=== PATIENT | male | born 1945 | race Caucasian/White ===

== ENCOUNTER → 2017-12-30 | Outpatient (CLI) | payer MEDICARE, OTHER ==
[~2017-12-30] MED LIST: HEPARIN 1,000 UNITS/ML 10ML VIAL (FOR RADIOLOGY& DIALYSIS ONLY) As Ordered; ISOVUE-300 61% 50ML VIAL (Q9967) As Ordered; LIDOCAINE 2% MDV 20 ML VIAL As Ordered; MIDAZOLAM INJ 2 MG/2 ML VIAL (J2250) As Ordered; fentaNYL 100 MCG/2 ML INJECTION (J3010) As Ordered
[2017-12-30 09:55] LABS: HEMATOCRIT 44.4 % (42.0-52.0); HEMOGLOBIN 14.8 g/dl (13.5-17.5); MEAN CORPUSCULAR HEMOGLOBIN 32.2 pg (27.0-33.0); MEAN CORPUSCULAR HGB CONC 33.3 g/dl (32.0-36.5); MEAN CORPUSCULAR VOLUME 96.7 fl (80.0-96.0); PLATELET COUNT, AUTOMATED 177 10^3/uL (150-450); RED BLOOD COUNT 4.59 10^6/uL (4.30-6.10); RED CELL DISTRIBUTION WIDTH 13.2 % (11.5-14.5); WHITE BLOOD COUNT 8.2 10^3/uL (4.0-10.0)
[2017-12-30 10:08] LABS: INR 0.86; PROTHROMBIN TIME 11.8 SECONDS (12.1-14.4)
[2017-12-30 10:18] LABS: ANION GAP 11 MEQ/L (8-16); BLOOD UREA NITROGEN 20 MG/DL (7-18); CALCIUM LEVEL 8.7 MG/DL (8.8-10.2); CARBON DIOXIDE LEVEL 28 MEQ/L (21-32); CHLORIDE LEVEL 104 MEQ/L (98-107); CREATININE FOR GFR 1.82 MG/DL (0.70-1.30); GLUCOSE, FASTING 158 MG/DL (70-100); SODIUM LEVEL 143 MEQ/L (136-145)
== END | disposition home or self-care (01) ==
LOC: M IRPRO 09:22
DX: I70.201 Unspecified atherosclerosis of native arteries of extremities, right leg (principal); I87.2 Venous insufficiency (chronic) (peripheral); I87.301 Chronic venous hypertension (idiopathic) without complications of right lower extremity
CPT/HCPCS: 36247

== ENCOUNTER → 2018-02-23 | Outpatient (CLI) | payer MEDICARE, OTHER | LOC: M RAD 11:38 | DX: N17.9 Acute kidney failure, unspecified (principal); I73.9 Peripheral vascular disease, unspecified | CPT/HCPCS: 78707 ==

== ENCOUNTER 2018-10-28 12:00 | Inpatient (IN) | payer MEDICARE ==
[~2018-10-28] VITALS: Ht 177.8 cm; Wt 139.2 kg
[~2018-10-28 12:00] MED LIST changes: +ACET-683 PO; +ASPI81TA85 PO; +ATEN50TA2 PO; +CVS400CA PO; +CYAN500T8 PO; +FENO145T13 PO; +FURO80TA2 PO; -HEPARIN 1,000 UNITS/ML 10ML VIAL (FOR RADIOLOGY& DIALYSIS ONLY) As Ordered; +INSUHUMDS SC; +INSULANT SC; -ISOVUE-300 61% 50ML VIAL (Q9967) As Ordered; -LIDOCAINE 2% MDV 20 ML VIAL As Ordered; +LISI-538 PO; -MIDAZOLAM INJ 2 MG/2 ML VIAL (J2250) As Ordered; +OMEP20CA4 PO; +SIMV40TA2 PO; +SULF1TAB93 PO; +XARE10TA PO; -fentaNYL 100 MCG/2 ML INJECTION (J3010) As Ordered
[2018-10-29] VITALS (8 sets, daily range): BP systolic 126–180; BP diastolic 54–74
[2018-10-29] MEDS ORDERED: LR 1,000 ML IV ONE (07:00)
[2018-10-29] MEDS ORDERED: ONDANSETRON 4MG/2ML VIAL (J2405) As Ordered ONE (11:35)
[2018-10-29] MEDS ORDERED: LIDOCAINE 2% INJ 100 MG/5 ML SDV (FOR ANES.) As Ordered ONE (11:35)
[2018-10-29] MEDS ORDERED: dexameTHASONE 4 MG/ML 1ML VIAL (J1100) As Ordered ONE (11:35)
[2018-10-29] MEDS ORDERED: MIDAZOLAM INJ 2 MG/2 ML VIAL (J2250) As Ordered ONE (11:35)
[2018-10-29] MEDS ORDERED: PROPOFOL 200 MG/20 ML VIAL As Ordered ONE ×6 (11:35→15:25)
[2018-10-29] MEDS ORDERED: fentaNYL 100 MCG/2 ML INJECTION (J3010) As Ordered ONE ×2 (11:36→13:00)
[2018-10-29] MEDS ORDERED: LIDOCAINE 1% SDV INJ 30 ML VIAL As Ordered ONE (11:41)
[2018-10-29] MEDS ORDERED: BUPIVACAINE HCL 0.5% 30 ML VIAL As Ordered ONE (11:41)
[2018-10-29] MEDS ORDERED: HEPARIN SOD (PORCINE) 5000 UNITS/ML VIAL As Ordered ONE ×3 (11:41→15:12)
[2018-10-29] MEDS ORDERED: THROMBIN SOLN 20,000 UNITS KIT As Ordered ONE (11:41)
[2018-10-29] MEDS ORDERED: CLINDAMYCIN 900 MG/50 ML PREMIX BAG As Ordered ONE (12:06)
[2018-10-29] MEDS ORDERED: KETAMINE HCL 200 MG/20 ML VIAL As Ordered ONE (12:27)
[2018-10-29] MEDS ORDERED: KETOROLAC 60 MG/2 ML VIAL (J1885) As Ordered ONE (12:52)
[2018-10-29] MEDS ORDERED: CLINDAMYCIN 900 MG in APPROPRIATE DILUENT 1 EA IV ONE (13:30)
[2018-10-29] MEDS ORDERED: HYDROmorphone HCL 2 MG/ML 1ML VIAL (J1170) As Ordered ONE (14:54)
[2018-10-29] MEDS ORDERED: hydrALAZINE INJ 20 MG/ML VIAL As Ordered ONE (15:06)
[2018-10-29] MEDS ORDERED: BISACODYL 10 MG SUPP PR PRN (16:15)
[2018-10-29] MEDS ORDERED: MOM 30ML SUSPENSION UDC PO PRN (16:15)
[2018-10-29] MEDS ORDERED: METOCLOPRAMIDE INJ 10MG/2ML VIAL (J2765) IV PRN (16:15)
[2018-10-29] MEDS ORDERED: ONDANSETRON 4MG/2ML VIAL (J2405) IV PRN (16:15)
[2018-10-29] MEDS ORDERED: PERCOCET 5MG/325MG TAB PO PRN (16:15)
[2018-10-29] MEDS ORDERED: fentaNYL 100 MCG/2 ML INJECTION (J3010) IV PRN (16:15)
[2018-10-29] MEDS ORDERED: LR 1,000 ML IV SCH (16:15)
[2018-10-29] MEDS ORDERED: PILL CUTTER 1 EACH XX PRN (17:00)
[2018-10-29] MEDS ORDERED: PERCOCET 5MG/325MG TAB As Ordered ONE (17:20)
[2018-10-29] MEDS ORDERED: HumaLOG INSULIN (NovoLOG) PER UNIT SC SCH (17:30)
[2018-10-29] MEDS ORDERED: SLF 3 ML SYR IV PRN (18:15)
[2018-10-29] MEDS: HumaLOG INSULIN (NovoLOG) PER UNIT SC SCH (18:51)
[2018-10-29] MEDS: BACTRIM 160MG/800MG DS TAB PO SCH (20:16)
[2018-10-29] MEDS: SENOKOT S TAB PO SCH (20:16)
[2018-10-29] MEDS: LISINOPRIL 20 MG TAB PO SCH (20:16)
[2018-10-29] MEDS: FENOFIBRATE 145 MG TAB (TRICOR) PO SCH (20:20)
[2018-10-29] MEDS: RIVAROXABAN 10 MG TAB (XARELTO) PO SCH (20:20)
[2018-10-29] MEDS: LEVEMIR (INSULIN DETEMIR) 1 UNITS/0.01ML SC SCH (20:21)
[2018-10-29] MEDS: SIMVASTATIN 40 MG TAB PO SCH (20:21)
[2018-10-29] MEDS: DOCUSATE SODIUM 100 MG CAP PO SCH (20:22)
[2018-10-29] MEDS: FUROSEMIDE 80 MG TAB PO SCH (20:22)
[2018-10-29] MEDS: ATENOLOL 50 MG TAB PO SCH (20:22)
[2018-10-29] MEDS: SLF 3 ML SYR IV SCH (22:10)
[2018-10-29] MEDS: ACETAMINOPHEN 500 MG TAB PO PRN (22:16)
[2018-10-30 04:00] VITALS: BP 147/66
[2018-10-30 05:44] LABS: BASO % 0.1 % (0.0-1.0); HEMATOCRIT 34.7 % (42.0-52.0); HEMOGLOBIN 11.3 g/dl (13.5-17.5); LYMPH # 0.8 10^3/uL (1.5-4.5); LYMPH % 7.9 % (24.0-44.0); MEAN CORPUSCULAR HEMOGLOBIN 31.9 pg (27.0-33.0); MEAN CORPUSCULAR HGB CONC 32.6 g/dl (32.0-36.5); MONO # 0.8 10^3/uL (0.0-0.8); MONO % 7.4 % (0.0-5.0); NEUTROPHILS # 8.9 10^3/uL (1.8-7.7); NEUTROPHILS % 84.1 % (36.0-66.0); PLATELET COUNT, AUTOMATED 182 10^3/uL (150-450); RED BLOOD COUNT 3.54 10^6/uL (4.30-6.10); WHITE BLOOD COUNT 10.6 10^3/uL (4.0-10.0)
[2018-10-30 06:02] LABS: CALCIUM LEVEL 8.1 MG/DL (8.8-10.2); CREATININE FOR GFR 1.27 MG/DL (0.70-1.30); POTASSIUM SERUM 4.2 MEQ/L (3.5-5.1)
[2018-10-30] MEDS: SLF 3 ML SYR IV SCH ×4 (06:45→22:18)
[2018-10-30 08:00] VITALS: BP 141/83
[2018-10-30] MEDS: SENOKOT S TAB PO SCH ×2 (08:12→20:26)
[2018-10-30] MEDS: ASPIRIN 81 MG ENTERIC TAB PO SCH (08:12)
[2018-10-30] MEDS: FUROSEMIDE 80 MG TAB PO SCH ×2 (08:12→20:26)
[2018-10-30] MEDS: DOCUSATE SODIUM 100 MG CAP PO SCH ×2 (08:12→20:26)
[2018-10-30] MEDS: BACTRIM 160MG/800MG DS TAB PO SCH ×2 (08:12→20:26)
[2018-10-30] MEDS: LISINOPRIL 20 MG TAB PO SCH ×2 (08:12→20:26)
[2018-10-30] MEDS: RIVAROXABAN 10 MG TAB (XARELTO) PO SCH ×2 (08:13→20:28)
[2018-10-30] MEDS: OMEPRAZOLE 20 MG CAP PO SCH (08:13)
[2018-10-30] MEDS: LEVEMIR (INSULIN DETEMIR) 1 UNITS/0.01ML SC SCH ×2 (08:13→20:33)
[2018-10-30] MEDS: HumaLOG INSULIN (NovoLOG) PER UNIT SC SCH ×3 (08:13→17:29)
[2018-10-30] MEDS: ACETAMINOPHEN 500 MG TAB PO PRN (08:20)
[2018-10-30] MEDS ORDERED: PREVNAR 13 VACCINE SYRINGE (CPT CODE:90670) IM ONE (09:00)
[2018-10-30 12:00] VITALS: BP 130/53
[2018-10-30 16:00] VITALS: BP 126/57
[2018-10-30 20:00] VITALS: BP 140/60
[2018-10-30] MEDS: ATENOLOL 50 MG TAB PO SCH (20:26)
[2018-10-30] MEDS: FENOFIBRATE 145 MG TAB (TRICOR) PO SCH (20:28)
[2018-10-30] MEDS: SIMVASTATIN 40 MG TAB PO SCH (20:28)
[2018-10-30 23:59] VITALS: BP 145/57
[2018-10-31] MEDS: ACETAMINOPHEN 500 MG TAB PO PRN ×2 (03:40→22:31)
[2018-10-31 04:00] VITALS: BP 173/76
[2018-10-31] MEDS: SLF 3 ML SYR IV SCH ×3 (06:10→22:05)
[2018-10-31] MEDS: HumaLOG INSULIN (NovoLOG) PER UNIT SC SCH ×3 (07:30→16:51)
[2018-10-31 08:00] VITALS: BP 133/59
[2018-10-31] MEDS: LEVEMIR (INSULIN DETEMIR) 1 UNITS/0.01ML SC SCH ×2 (08:45→22:05)
[2018-10-31] MEDS: SENOKOT S TAB PO SCH ×2 (08:45→22:06)
[2018-10-31] MEDS: OMEPRAZOLE 20 MG CAP PO SCH (08:45)
[2018-10-31] MEDS: DOCUSATE SODIUM 100 MG CAP PO SCH ×2 (08:45→22:06)
[2018-10-31] MEDS: BACTRIM 160MG/800MG DS TAB PO SCH ×2 (08:46→22:06)
[2018-10-31] MEDS: ASPIRIN 81 MG ENTERIC TAB PO SCH (08:46)
[2018-10-31] MEDS: RIVAROXABAN 10 MG TAB (XARELTO) PO SCH ×2 (08:46→22:07)
[2018-10-31] MEDS: LISINOPRIL 20 MG TAB PO SCH ×2 (08:46→22:06)
[2018-10-31] MEDS: FUROSEMIDE 80 MG TAB PO SCH ×2 (08:46→16:51)
[2018-10-31] MEDS ORDERED: ENTER DRUG NAME HERE (PATIENT'S OWN MED) PO SCH (09:00)
[2018-10-31] MEDS ORDERED: CYANOCOBALAMIN 100 MCG PO SCH (09:00)
[2018-10-31 12:00] VITALS: BP 147/64
[2018-10-31 16:00] VITALS: BP 142/61
[2018-10-31 20:00] VITALS: BP 140/75
[2018-10-31] MEDS: FENOFIBRATE 145 MG TAB (TRICOR) PO SCH (22:06)
[2018-10-31] MEDS: ATENOLOL 50 MG TAB PO SCH (22:06)
[2018-10-31] MEDS: SIMVASTATIN 40 MG TAB PO SCH (22:07)
[2018-10-31 23:59] VITALS: BP 130/57
[2018-11-01 04:00] VITALS: BP 133/53
[2018-11-01] MEDS: SLF 3 ML SYR IV SCH ×3 (05:10→21:08)
[2018-11-01 08:00] VITALS: BP 162/82
[2018-11-01] MEDS: LEVEMIR (INSULIN DETEMIR) 1 UNITS/0.01ML SC SCH ×2 (08:27→21:06)
[2018-11-01] MEDS: DOCUSATE SODIUM 100 MG CAP PO SCH ×2 (08:28→21:04)
[2018-11-01] MEDS: SENOKOT S TAB PO SCH ×2 (08:28→21:04)
[2018-11-01] MEDS: ASPIRIN 81 MG ENTERIC TAB PO SCH (08:28)
[2018-11-01] MEDS: HumaLOG INSULIN (NovoLOG) PER UNIT SC SCH ×3 (08:28→17:31)
[2018-11-01] MEDS: OMEPRAZOLE 20 MG CAP PO SCH (08:28)
[2018-11-01] MEDS: BACTRIM 160MG/800MG DS TAB PO SCH ×2 (08:28→21:14)
[2018-11-01] MEDS: LISINOPRIL 20 MG TAB PO SCH ×2 (08:28→21:05)
[2018-11-01] MEDS: FUROSEMIDE 80 MG TAB PO SCH ×2 (08:29→16:10)
[2018-11-01] MEDS: RIVAROXABAN 10 MG TAB (XARELTO) PO SCH ×2 (08:29→21:06)
[2018-11-01 12:00] VITALS: BP 135/66
[2018-11-01 16:00] VITALS: BP 139/59
[2018-11-01] MEDS: ACETAMINOPHEN 500 MG TAB PO PRN ×2 (16:10→21:04)
[2018-11-01 20:00] VITALS: BP 147/61
[2018-11-01] MEDS: FENOFIBRATE 145 MG TAB (TRICOR) PO SCH (21:04)
[2018-11-01] MEDS: ATENOLOL 50 MG TAB PO SCH (21:05)
[2018-11-01] MEDS: SIMVASTATIN 40 MG TAB PO SCH (21:05)
[2018-11-02] VITALS: BP 130/58
[2018-11-02 04:00] VITALS: BP 136/69
[2018-11-02] MEDS: SLF 3 ML SYR IV SCH ×3 (05:32→22:39)
[2018-11-02 08:00] VITALS: BP 127/57
[2018-11-02] MEDS: HumaLOG INSULIN (NovoLOG) PER UNIT SC SCH ×3 (08:26→17:27)
[2018-11-02] MEDS: LEVEMIR (INSULIN DETEMIR) 1 UNITS/0.01ML SC SCH ×2 (08:27→22:39)
[2018-11-02] MEDS: OMEPRAZOLE 20 MG CAP PO SCH (08:27)
[2018-11-02] MEDS: SENOKOT S TAB PO SCH ×2 (08:27→21:27)
[2018-11-02] MEDS: LISINOPRIL 20 MG TAB PO SCH ×2 (08:27→21:00)
[2018-11-02] MEDS: FUROSEMIDE 80 MG TAB PO SCH ×2 (08:27→17:27)
[2018-11-02] MEDS: RIVAROXABAN 10 MG TAB (XARELTO) PO SCH ×2 (08:27→21:24)
[2018-11-02] MEDS: DOCUSATE SODIUM 100 MG CAP PO SCH ×2 (08:27→21:23)
[2018-11-02] MEDS: BACTRIM 160MG/800MG DS TAB PO SCH ×2 (08:27→21:23)
[2018-11-02] MEDS: ASPIRIN 81 MG ENTERIC TAB PO SCH (08:27)
--- NOTE | 2018-11-02 08:56 | IPNPDOC ---
Date Seen The patient was seen on 11/02/18. Progress Note HPI: 72year oldM with a past medical history significant for PAD/claudication S/P Rt femoral endarterectomy 10/29/[address] Ferraro. Pt states pain is controlled, wound vac in place Rt groin operative site. Denies any fevers, chills, weakness, fatigue, Headache, Chest Pain, Shortness of breath, cough, palpitations, abdominal pain, N/V/D or changes in bowel or bladder habits. PMHx: DM CAD HTN GERD HLD Obesity. BMI 43.8. Unsteady gait, walker. PE: GEN: 72yoM, appears stated age. No acute distress. Alert and oriented x 3. Sitting on side of bed this AM. HEENT: Normocephalic, atraumatic. Sclera are nonicteric. Conjunctiva without injection. No facial asymmetry. Moist mucous membranes. CHEST: Regular rate and rhythm, +S1, +S2 LUNGS: Clear to auscultation bilaterally. No wheezes, rales, or rhonchi. Breathing appears symmetric and easy. ABD: Round, soft, non-tender, non-distended. +Bowel sounds throughout. EXT: No lower extremity edema appreciated. Good cap refill. SKIN: [place], dry, warm. Wound vac in place Rt groin. NEURO: Alert and oriented x 3. No focal deficits appreciated. A&P: 1. PAD/S/P Rt femoral endarterectomy 10/29/[address] Ferraro. Wound vac in place Rt groin surgical site. Afebrile. No new labs this AM. PO Bactrim Tylenol as needed. Disposition. PT not yet safe. 2. DM. CC diet SSI 3. HTN Lasix, lisinopril. 4. CAD Atenolol/ASA. 5. HLD. Zocor/tricor. 6. Obesity. BMI 43.8. Complicates care. VS, I&O, 24H, Fishbone Vital Signs/I&O Vital Signs Date Time Temp Pulse Resp B/P (MAP) Pulse Ox O2 Delivery O2 Flow Rate FiO2 11/02/18 08:27 130/72 11/02/18 05:00 99 Nasal Cannula 1.0 11/02/18 04:00 97.6 62 18 I&O- Last 24 Hours up to 6 AM 11/02/18 06:00 Intake Total 1020 ml Output Total 1500 ml Balance -480 ml Laboratory Data 24H LABS Laboratory Tests 2 11/01/18 11:33: Bedside Glucose (Misc Panel) 319H 11/01/18 17:01: Bedside Glucose (Misc Panel) 248H 11/02/18 06:33: Bedside Glucose (Misc Panel) 117H Carol Bah Nov 02, 2018 08:56
[2018-11-02 12:00] VITALS: BP 146/78
[2018-11-02 20:00] VITALS: BP 136/64
[2018-11-02] MEDS: ATENOLOL 50 MG TAB PO SCH (21:24)
[2018-11-02] MEDS: FENOFIBRATE 145 MG TAB (TRICOR) PO SCH (21:24)
[2018-11-02] MEDS: SIMVASTATIN 40 MG TAB PO SCH (21:25)
[2018-11-02] MEDS: ACETAMINOPHEN 500 MG TAB PO PRN (21:26)
[2018-11-02 23:59] VITALS: BP 130/68
[2018-11-03 04:00] VITALS: BP 120/58
[2018-11-03] MEDS: SLF 3 ML SYR IV SCH ×3 (06:31→22:08)
[2018-11-03 08:00] VITALS: BP 123/56
[2018-11-03] MEDS: LEVEMIR (INSULIN DETEMIR) 1 UNITS/0.01ML SC SCH ×2 (08:14→22:07)
[2018-11-03] MEDS: OMEPRAZOLE 20 MG CAP PO SCH (08:15)
[2018-11-03] MEDS: HumaLOG INSULIN (NovoLOG) PER UNIT SC SCH ×3 (08:15→17:08)
[2018-11-03] MEDS: SENOKOT S TAB PO SCH ×2 (08:15→21:52)
[2018-11-03] MEDS: BACTRIM 160MG/800MG DS TAB PO SCH ×2 (08:15→21:52)
[2018-11-03] MEDS: DOCUSATE SODIUM 100 MG CAP PO SCH ×2 (08:15→21:52)
[2018-11-03] MEDS: LISINOPRIL 20 MG TAB PO SCH ×2 (08:16→21:52)
[2018-11-03] MEDS: FUROSEMIDE 80 MG TAB PO SCH ×2 (08:16→17:08)
[2018-11-03] MEDS: ASPIRIN 81 MG ENTERIC TAB PO SCH (08:16)
[2018-11-03] MEDS: RIVAROXABAN 10 MG TAB (XARELTO) PO SCH ×2 (08:16→21:53)
[2018-11-03 12:00] VITALS: BP 141/65
--- NOTE | 2018-11-03 13:11 | IPNPDOC ---
Date Seen The patient was seen on 11/03/18. Progress Note HPI: 72year oldM with a past medical history significant for PAD/claudication S/P Rt femoral endarterectomy 10/29/[address] Ferraro. Pt states pain is controlled, Prevena wound vac in place Rt groin operative site. Pt is OOB to chair. No new complaints. Denies any fevers, chills, weakness, fatigue, Headache, Chest Pain, Shortness of breath, cough, palpitations, abdominal pain, N/V/D or changes in bowel or bladder habits. PMHx: DM CAD HTN GERD HLD Obesity. BMI 43.8. Unsteady gait, walker. PE: GEN: 72yoM, appears stated age. No acute distress. Alert and oriented x 3. Sitting in chair. HEENT: Normocephalic, atraumatic. Moist mucous membranes. CHEST: Regular rate and rhythm, +S1, +S2 LUNGS: Clear to auscultation bilaterally. No wheezes, rales, or rhonchi. Breathing appears symmetric and easy. ABD: Round, soft, non-tender, non-distended. +Bowel sounds throughout. EXT: No lower extremity edema appreciated. Good cap refill. SKIN: [place], dry, warm. Wound vac in place Rt groin. NEURO: Alert and oriented x 3. No focal deficits appreciated. A&P: 1. PAD/S/P Rt femoral endarterectomy 10/29/[address] Ferraro. POD 5. Prevena Wound vac in place Rt groin surgical site. Plan is to continue x 7 days then remove. Pt states he does not feel comfortable going home with the vac, cannot drive back to office as he lives in [place]. Afebrile. No new labs this AM. PO Bactrim Tylenol as needed. Disposition. Pt had discussed with Dr Ferraro having LLE angiogram prior to discharge and the pt wants to have this done before he leaves because it is hard for him to come back. Plan as relayed by Dr Ferraro 11/03/18, plan for angiogram LLE 11/04 or 11/05/18. PT safe. 2. DM. CC diet SSI 3. HTN Lasix, lisinopril. 4. CAD Atenolol/ASA. 5. HLD. Zocor/tricor. 6. Obesity. BMI 43.8. Complicates care. VS, I&O, 24H, Fishbone Vital Signs/I&O Vital Signs Date Time Temp Pulse Resp B/P (MAP) Pulse Ox O2 Delivery O2 Flow Rate FiO2 11/03/18 12:00 97.2 66 18 141/65 (90) 96 1.0 11/03/18 09:00 Room Air I&O- Last 24 Hours up to 6 AM 11/03/18 05:59 Intake Total 1520 ml Output Total 1125 ml Balance 395 ml Laboratory Data 24H LABS Laboratory Tests 2 11/02/18 17:15: Bedside Glucose (Misc Panel) 262H 11/02/18 22:35: Bedside Glucose (Misc Panel) 232H 11/03/18 07:50: Bedside Glucose (Misc Panel) 120H 11/03/18 07:51: Bedside Glucose (Misc Panel) 123H 11/03/18 11:51: Bedside Glucose (Misc Panel) 168H Carol Bah Nov 03, 2018 13:11
[2018-11-03 16:00] VITALS: BP 137/63
[2018-11-03 20:00] VITALS: BP 164/96
[2018-11-03] MEDS: SIMVASTATIN 40 MG TAB PO SCH (21:52)
[2018-11-03] MEDS: ACETAMINOPHEN 500 MG TAB PO PRN (21:53)
[2018-11-03] MEDS: ATENOLOL 50 MG TAB PO SCH (21:54)
[2018-11-03] MEDS: FENOFIBRATE 145 MG TAB (TRICOR) PO SCH (21:54)
[2018-11-03 23:59] VITALS: BP 126/60
[2018-11-04 04:00] VITALS: BP 129/61
[2018-11-04] MEDS: SLF 3 ML SYR IV SCH ×3 (06:28→20:39)
[2018-11-04 08:00] VITALS: BP 121/58
[2018-11-04] MEDS: DOCUSATE SODIUM 100 MG CAP PO SCH ×2 (08:59→20:39)
[2018-11-04] MEDS: LISINOPRIL 20 MG TAB PO SCH ×2 (09:00→20:37)
[2018-11-04] MEDS: FUROSEMIDE 80 MG TAB PO SCH ×2 (09:00→16:54)
[2018-11-04] MEDS: BACTRIM 160MG/800MG DS TAB PO SCH ×2 (09:00→20:37)
[2018-11-04] MEDS: LEVEMIR (INSULIN DETEMIR) 1 UNITS/0.01ML SC SCH ×2 (09:00→20:38)
[2018-11-04] MEDS: SENOKOT S TAB PO SCH ×2 (09:00→20:38)
[2018-11-04] MEDS: ASPIRIN 81 MG ENTERIC TAB PO SCH (09:00)
[2018-11-04] MEDS: RIVAROXABAN 10 MG TAB (XARELTO) PO SCH ×2 (09:01→20:38)
[2018-11-04] MEDS: HumaLOG INSULIN (NovoLOG) PER UNIT SC SCH ×3 (09:01→16:53)
[2018-11-04] MEDS: OMEPRAZOLE 20 MG CAP PO SCH (09:01)
[2018-11-04 12:00] VITALS: BP 128/59
[2018-11-04 16:00] VITALS: BP 123/55
[2018-11-04 20:00] VITALS: BP 154/58
[2018-11-04] MEDS: SIMVASTATIN 40 MG TAB PO SCH (20:37)
[2018-11-04] MEDS: FENOFIBRATE 145 MG TAB (TRICOR) PO SCH (20:38)
[2018-11-04] MEDS: ATENOLOL 50 MG TAB PO SCH (20:38)
[2018-11-04] MEDS: ACETAMINOPHEN 500 MG TAB PO PRN (20:43)
[2018-11-04 23:59] VITALS: BP 103/55
[2018-11-05 04:00] VITALS: BP 110/49
[2018-11-05] MEDS: SLF 3 ML SYR IV SCH ×2 (05:19→14:00)
[2018-11-05] MEDS: HumaLOG INSULIN (NovoLOG) PER UNIT SC SCH ×2 (07:30→14:00)
[2018-11-05 08:00] VITALS: BP 132/63
[2018-11-05] MEDS: LEVEMIR (INSULIN DETEMIR) 1 UNITS/0.01ML SC SCH (08:32)
[2018-11-05] MEDS: FUROSEMIDE 80 MG TAB PO SCH (09:00)
[2018-11-05] MEDS: DOCUSATE SODIUM 100 MG CAP PO SCH (09:00)
[2018-11-05] MEDS: SENOKOT S TAB PO SCH (09:00)
[2018-11-05] MEDS: OMEPRAZOLE 20 MG CAP PO SCH (09:00)
[2018-11-05 09:31] VITALS: BP 132/63
[2018-11-05] MEDS: RIVAROXABAN 10 MG TAB (XARELTO) PO SCH (09:31)
[2018-11-05] MEDS: LISINOPRIL 20 MG TAB PO SCH (09:31)
[2018-11-05] MEDS: ASPIRIN 81 MG ENTERIC TAB PO SCH (09:31)
[2018-11-05] MEDS: BACTRIM 160MG/800MG DS TAB PO SCH (09:32)
--- NOTE | 2018-11-10 09:14 | DSES ---
DATE OF ADMISSION: 10/29/2018 DATE OF DISCHARGE: 11/05/2018 ADMISSION DIAGNOSES: 1. Nonhealing right 1st and 2nd toe ulcer. 2. 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 PROCEDURES PERFORMED DURING HOSPITALIZATION: Right external iliac artery common femoral artery, superficial femoral, and profunda femoris artery endarterectomy with closure of the arteriotomy with a patch using a XenoSure biologic patch. HOSPITAL COURSE: The patient was admitted, underwent surgery and did well and worked with physical therapy postoperatively and was eventually cleared and discharged home. The patient will followup in 2-3 weeks as an outpatient.
--- NOTE | 2018-11-10 09:37 | RO ---
DATE OF PROCEDURE: 10/29/2018 PREOPERATIVE DIAGNOSES: Right nonhealing first toe ulcer. Right second toe nonhealing ulcer. Right common femoral, superficial femoral and profunda femoris atherosclerotic arterial occlusive disease. POSTOPERATIVE DIAGNOSES: Right nonhealing first toe ulcer. Right second toe nonhealing ulcer. Right common femoral, superficial femoral and profunda femoris atherosclerotic arterial occlusive disease. PROCEDURE: Right external iliac artery endarterectomy. Right common femoral artery endarterectomy. Right superficial femoral artery endarterectomy. Right profunda femoris artery endarterectomy. Closure of the arteriotomy with patch angioplasty with XenoSure Biologic patch. ATTENDING SURGEON: Dr. Herminia Ferraro GLASS POLISHER: None. INDICATION: The patient is a 72-year-old male with nonhealing right first and second toe ulcers, pain in his right foot and severe atherosclerotic occlusive disease in the right lower extremity. The patient will undergo a right external iliac artery, superficial femoral and profunda femoris artery endarterectomy. ANESTHESIA: Local monitored anesthesia care (MAC). ESTIMATED BLOOD LOSS: 900 mL. IV FLUIDS: 2 units of packed red blood cells, 2600 mL of crystalloid. HEPARIN: 7000 units followed by an additional 3000 units of bolus and an additional 3000 bolus for a total of 13,000 units. SPECIMENS: Right external iliac and femoral plaque. COMPLICATIONS: None. DRAINS: None. IMPLANTS: XenoSure Biologic patch times two. PROCEDURE: The patient is taken to the operating room, placed supine on the operating room table, and then prepped and draped in a standard surgical fashion. The incision was made obliquely in the right inguinal region. The common femoral, superficial femoral, and profunda femoris arteries were all dissected sharply and then encircled with vessel loops. The patient was given heparin and an arteriotomy was then made after clamping the vessels. The plaque extended up into the external iliac artery, which was exposed and encircled with vessel loop. The endarterectomy was completed followed by closure of the arteriotomy with patch angioplasty using XenoSure Biologic patch and #6-0 Prolene suture in running continuous fashion. Hemostasis was obtained after flow was reestablished through the external iliac artery into the common femoral artery, superficial femoral artery and profunda femoris arteries. The deep tissue was closed with #2-0 Vicryl. The skin was closed with montez. A PREVENA dressing was then applied to the incision. All instrument, sponge and needle counts were correct at the end of the case. There were no complications. Dr. Ferraro was present for and directed the entire case. The patient was transferred to the holding area and subsequently to the floor in stable condition.
== END 2018-11-05 16:15 | disposition home or self-care (01) | DRG 271 ==
LOC: M OR 10-29 09:41 → M PCU 10-29 17:29
PROVIDERS: ADMIT Surgery Vascular Surgery; ATTEND Surgery Vascular Surgery
PROC: 04CK0Z6 (ICD-10-PCS; 2018-10-29)
PROC: 04UK0KZ Supplement Right Femoral Artery with Nonautologous Tissue Substitute, Open Approach (ICD-10-PCS; 2018-10-29)
PROC: 04CH0ZZ Extirpation of Matter from Right External Iliac Artery, Open Approach (ICD-10-PCS; principal; 2018-10-29 12:15)
DX: I70.213 Atherosclerosis of native arteries of extremities with intermittent claudication, bilateral legs (principal); Z68.41 Body mass index [BMI] 40.0-44.9, adult; E66.9 Obesity, unspecified; I87.2 Venous insufficiency (chronic) (peripheral); E11.9 Type 2 diabetes mellitus without complications; I25.10 Atherosclerotic heart disease of native coronary artery without angina pectoris; K21.9 Gastro-esophageal reflux disease without esophagitis; I10 Essential (primary) hypertension; R26.89 Other abnormalities of gait and mobility; Z87.891 Personal history of nicotine dependence

== ENCOUNTER → 2018-11-17 | Outpatient (CLI) | payer MEDICARE ==
[~2018-11-17] MED LIST changes: +BUPIVACAINE HCL 0.5% 10 ML VIAL As Ordered ONE; +HEPARIN 1,000 UNITS/ML 10ML VIAL (FOR RADIOLOGY& DIALYSIS ONLY) As Ordered ONE; +ISOVUE-300 61% 50ML VIAL (Q9967) As Ordered ONE; +LIDOCAINE 2% MDV 20 ML VIAL As Ordered ONE; +MIDAZOLAM INJ 2 MG/2 ML VIAL (J2250) As Ordered ONE; +OXYB5TAB10 PO; +PROTAMINE SULF INJ 50 MG/5 ML VIAL (J2720) As Ordered ONE; +diphenhydrAMINE INJ 50MG/ML VIAL (J1200) As Ordered ONE; +fentaNYL 100 MCG/2 ML INJECTION (J3010) As Ordered ONE
[2018-11-17 14:38] VITALS: BP 146/60
--- NOTE | 2018-12-16 09:31 | REPIR ---
DATE OF PROCEDURE: 11/17/2018 ATTENDING SURGEON: Dr. Maggie Ferraro BAG CUTTER: Janeth Selby and Destinee Spaulding PREOPERATIVE DIAGNOSES: Right first toe nonhealing ulcer. Bilateral lower extremity claudication. Chronic renal insufficiency, stage III. POSTOPERATIVE DIAGNOSES: Right first toe nonhealing ulcer. Bilateral lower extremity claudication. Chronic renal insufficiency, stage III. PROCEDURE: Left common femoral arterial cannulation. Selective right common femoral artery catheter placement with right lower extremity angiogram. Selective right superficial femoral artery catheter placement with right lower extremity angiogram. Selective right popliteal artery catheter placement with right lower extremity angiogram. Right external iliac artery angioplasty with 6 x 200 balloon. Right common femoral artery angioplasty with 6 x 200 balloon. Right superficial femoral artery angioplasty with 6 x 200 balloon. Right popliteal artery angioplasty with 6 x 200 balloon. Right external iliac artery angioplasty and stent with a 10 x 39 WALLSTENT, postdilated with an 8 x 4 balloon. MYNX closure of the left common femoral arteriotomy. INDICATION: Patient is a 72-year-old male with previous right external iliac and femoral endarterectomy with continued pain in the right foot. The patient will undergo a right lower extremity angiogram. Risks, benefits and alternative options were discussed with the patient. ANESTHESIA: Local with sedation with 1 mg Versed, 50 mcg of fentanyl and 10 mL of 2% lidocaine mixed of 0.5% Marcaine, Benadryl 50 mg. SEDATION TIME: 10:35 a.m. to 11:03 a.m. for a total of 28 minutes. HEPARIN: 7000 units, protamine 50 mg COMPLICATIONS: None. DRAINS: None. SPECIMENS: None IMPLANTS: 10 x 39 WALLSTENT used to angioplasty and stent the right external iliac artery. PROCEDURE: The patient was taken to the angiography suite, placed supine on the angiography room table, and then prepped and draped in a standard surgical fashion. The left common femoral artery was cannulated, catheter was brought up and over the bifurcation and placed in the right common femoral artery and an angiogram was performed. The right superficial femoral artery catheter angiogram was performed as well as the right popliteal artery. This showed stenosis at the external iliac common femoral artery junction as well as along the course of the external iliac artery. The right external iliac artery underwent angioplasty and stent with a 10 x 39 WALLSTENT postdilated with an 8 x 4 balloon. The right common femoral artery underwent angioplasty with 6 x 200 balloon. The right superficial femoral artery under underwent angioplasty with 6 x 200 balloon and the right popliteal artery underwent angioplasty with 6 x 200 balloon a completion angiogram showed resolution of the stenosis with good flow into the right lower extremity. Catheters and wires were removed. The sheath was removed from the left common femoral artery and a MYNX closure device used to close the arteriotomy with an additional 10 minutes adjunctive pressure applied for hemostasis. Dressings were then applied. The patient tolerated the procedure well. All instrument, sponge and needle counts were correct at the end of the case. There were no complications. Dr. Ferraro was present for and directed the entire case. The patient was transferred to the holding area and subsequently discharged in stable condition.
== END ==
LOC: M IRPRO 08:11
PROVIDERS: ATTEND Surgery Vascular Surgery
DX: I70.213 Atherosclerosis of native arteries of extremities with intermittent claudication, bilateral legs (principal); E11.621 Type 2 diabetes mellitus with foot ulcer; E11.51 Type 2 diabetes mellitus with diabetic peripheral angiopathy without gangrene; E11.22 Type 2 diabetes mellitus with diabetic chronic kidney disease; L97.519 Non-pressure chronic ulcer of other part of right foot with unspecified severity; N18.3 Chronic kidney disease, stage 3 (moderate); I25.10 Atherosclerotic heart disease of native coronary artery without angina pectoris; I12.9 Hypertensive chronic kidney disease with stage 1 through stage 4 chronic kidney disease, or unspecified chronic kidney disease; K21.9 Gastro-esophageal reflux disease without esophagitis; E78.5 Hyperlipidemia, unspecified; R26.89 Other abnormalities of gait and mobility
CPT/HCPCS: 37221; 37224; 75710; 99152; 99153; C1725; C1760; C1769; C1876; C1887; C1894; J1200; J2250; J2720; J3010; Q9967

== ENCOUNTER → 2018-12-13 | Outpatient (CLI) | payer MEDICARE ==
[~2018-12-13] MED LIST changes: -PROTAMINE SULF INJ 50 MG/5 ML VIAL (J2720) As Ordered ONE
[2018-12-13 15:01] VITALS: BP 170/70
--- NOTE | 2018-12-16 09:16 | REPIR ---
DATE OF PROCEDURE: 12/13/2018 ATTENDING SURGEON: Dr. Maggie Ferraro ASSISTANTS: Destinee Spaulding, Mary Dodd and Mynor Tam PREOPERATIVE DIAGNOSIS: Left lower extremity claudication. POSTOPERATIVE DIAGNOSIS: Left lower extremity claudication. PROCEDURE: Right common femoral arterial cannulation, selective left common femoral artery catheter placement with left lower extremity angiogram, selective left superficial femoral artery catheter placement with left lower extremity angiogram, Mynx closure of the right common femoral arteriotomy. INDICATION: The patient is a 72-hour-old male with bilateral lower extremity claudication who has previously undergone right lower extremity angiography as well as endarterectomy. The patient now states his right lower extremity is symptom free and is doing well. The patient still complains of claudication in his left lower extremity and will undergo a left lower extremity angiogram with possible angioplasty stent and/or atherectomy. ANESTHESIA: Local with 20 mL of 2% lidocaine mixed with 0.5% Marcaine. FLUOROSCOPY TIME: 0.0 minutes. CONTRAST: 3 mL of Isovue-300. COMPLICATIONS: None. DRAINS: None. SPECIMENS: None. IMPLANTS: Right common femoral arteriotomy closure with a Mynx closure device. PROCEDURE: The patient was taken to the angiography suite, placed supine on the angiography room table, and then prepped and draped in the standard surgical fashion. The right common femoral artery was cannulated with a micropuncture needle after anesthetizing the overlying skin and subcutaneous tissue. The micropuncture wire was advanced through the micropuncture needle with difficulty passing the micropuncture sheath over the micropuncture wire and a stiff micropuncture sheath was required. The Bentson wire was advanced through the micropuncture sheath, which was upsized to a 5-Swazi sheath. An Omni flush catheter was advanced up and over the bifurcation and placed in the left common femoral artery and a left lower extremity angiogram was performed. The catheter was advanced into the superficial femoral artery and a left lower extremity angiogram was performed. This showed diffuse atherosclerotic arterial occlusive disease in the common femoral and superficial femoral arteries. Catheters and wires were removed. A Mynx closure device was used to close the arteriotomy in the right common femoral artery with an additional 10 minutes of adjunctive pressure applied for hemostasis. Dressings were then applied. The patient tolerated procedure well. All instrument, sponge, and needle counts were correct at the end of case. There were no complications. Dr. Ferraro was present for and directed the entire case. The patient was transferred to the holding area and subsequently discharged in stable condition.
== END ==
LOC: M IRPRO 09:13
PROVIDERS: ATTEND Physician Assistant
DX: I70.211 Atherosclerosis of native arteries of extremities with intermittent claudication, right leg (principal); Z88.0 Allergy status to penicillin; Z79.899 Other long term (current) drug therapy; Z79.82 Long term (current) use of aspirin
CPT/HCPCS: 36247; 75710; C1760; C1769; C1887; C1894; G0269; Q9967

== ENCOUNTER → 2019-06-23 | Outpatient (CLI) | payer MEDICARE ==
[~2019-06-23] MED LIST changes: -BUPIVACAINE HCL 0.5% 10 ML VIAL As Ordered ONE; -FENO145T13 PO; +FENO145T7 PO; -HEPARIN 1,000 UNITS/ML 10ML VIAL (FOR RADIOLOGY& DIALYSIS ONLY) As Ordered ONE; -ISOVUE-300 61% 50ML VIAL (Q9967) As Ordered ONE; -LIDOCAINE 2% MDV 20 ML VIAL As Ordered ONE; -MIDAZOLAM INJ 2 MG/2 ML VIAL (J2250) As Ordered ONE; +OMEP1CAP73 PO; -OMEP20CA4 PO; -SIMV40TA2 PO; +SIMV40TA20 PO; -diphenhydrAMINE INJ 50MG/ML VIAL (J1200) As Ordered ONE; -fentaNYL 100 MCG/2 ML INJECTION (J3010) As Ordered ONE
--- NOTE | 2019-06-23 15:21 | REP ---
Bilateral lower extremity arterial Doppler ultrasound: History: Intermittent claudication bilateral leg. Findings: Extensive plaquing is visible bilaterally. The ankle brachial indices could not be assessed because of noncompressible vessels bilaterally. Multiple stenotic areas are seen. Monophasic waveforms are noted at and below the distal thigh bilaterally. Right lower extremity arterial Doppler velocity chart: CF A 238 cm/S Profunda 184 Proximal SFA 277 Mid SFA 137 Distal SFA 250 Popliteal 134 Proximal AT A 45 Tibioperoneal trunk 167 Proximal VISE HAND 88 Distal VISE HAND 122 Distal AT A 107 Left lower extremity arterial Doppler velocity chart: Left CF A 209 cm/S Profunda 116 Proximal SFA 196 Mid SFA 124 Distal SFA 103 Popliteal 83 Proximal AT A 45 Tibioperoneal trunk 76 Proximal VISE HAND 54 Distal VISE HAND 60 Distal AT A 23 Electronically Signed by Kirill Hudson MD 06/23/2019 03:12 P
== END ==
LOC: M RAD 12:31
PROVIDERS: ATTEND Physician Assistant
DX: I70.211 Atherosclerosis of native arteries of extremities with intermittent claudication, right leg (principal)

== ENCOUNTER → 2019-08-09 | Outpatient (CLI) | payer MEDICARE ==
[~2019-08-09] MED LIST changes: +ACETAMINOPHEN 325 MG TAB As Ordered ONE; +CLOP75TA2 PO; +CLOPIDOGREL 75 MG TAB As Ordered ONE; +HEPARIN 1,000 UNITS/ML 10ML VIAL (FOR RADIOLOGY& DIALYSIS ONLY)(J1644-10) As Ordered ONE; +ISOVUE-300 61% 50ML VIAL (Q9967) As Ordered ONE; +LIDOCAINE 1% MDV 20ML VIAL As Ordered ONE; +MIDAZOLAM INJ 2 MG/2 ML VIAL (J2250) As Ordered ONE; +fentaNYL 100 MCG/2 ML INJECTION (J3010) As Ordered ONE
[2019-08-09 09:15] LABS: HEMATOCRIT 42.8 % (42.0-52.0); MEAN CORPUSCULAR HEMOGLOBIN 31.9 pg (27.0-33.0); MEAN CORPUSCULAR HGB CONC 32.7 g/dl (32.0-36.5); MEAN CORPUSCULAR VOLUME 97.5 fl (80.0-96.0); PLATELET COUNT, AUTOMATED 178 10^3/uL (150-450); RED BLOOD COUNT 4.39 10^6/uL (4.30-6.10); WHITE BLOOD COUNT 6.5 10^3/uL (4.0-10.0)
[2019-08-09 09:31] LABS: ALBUMIN 3.4 GM/DL (3.2-5.2); BILIRUBIN,TOTAL 0.4 MG/DL (0.2-1.0); CALCIUM LEVEL 8.7 MG/DL (8.8-10.2); CREATININE FOR GFR 1.52 MG/DL (0.70-1.30); GLOMERULAR FILTRATION RATE 47.8 (>42); POTASSIUM SERUM 4.4 MEQ/L (3.5-5.1); TOTAL PROTEIN 7.1 GM/DL (6.4-8.2)
--- NOTE | 2019-08-09 11:42 | ROOPDOC ---
[facility] Report Of Operation Report of Operation DATE OF PROCEDURE: 08/09/19 PREPROCEDURE DIAGNOSES: Atherosclerosis of the [place] arteries with claudication, leg weakness, and pain POSTPROCEDURE DIAGNOSES: Same PROCEDURE: 1. Ultrasound-guided access left common femoral artery 2. Aortoiliofemoral arteriogram and selection of right superficial femoral artery and popliteal artery with runoff 3. Angioplasty right superficial femoral artery and popliteal artery with 5 x 100 [place] balloon 4. Stent right popliteal artery with 5 x 100 Innova stent and post-dilation with 5 x 100 [place] balloon 5. Completion arteriograms 6. Mynx closure left common femoral artery SURGEON: Osito Wagner MD ANESTHESIA: Local anesthesia 14 mL lidocaine. Moderate intravenous conscious sedation was supervised by Dr. Wagner. The patient was independently monitored by registered nurse assigned to the Department of radiology's and automated blood pressure, EKG, and pulse oximetry. The detailed sedation record is permanently stored in the hospital information system. Following this a presedation record: Start time 10:16, stop time 11:19, Versed 2 mg IV, fentanyl 100 g IV, heparin 5000 units IV. CONTRAST: 65 mL Isovue-300 INDICATION FOR PROCEDURE: This is a very pleasant 73-year-old patient with known peripheral vascular disease and increasing symptoms of claudication, weakness in the leg, and pain. Risks benefits and alternatives to an arteriogram with potential intervention of the right lower extremity were explained to the patient he is agreeable to proceed. Informed consent was obtained. INTERPRETATION: 1. The bilateral aortoiliac segments are widely patent. They previously placed right external iliac artery stent is widely patent. No significant stenoses noted in the common femoral, hypogastrics, or external iliac arteries. 2. The right common femoral artery is widely patent has good flow and the profunda. The origin of the SFA is slightly tortuous but widely patent. The wall is slightly calcified but it is not flow-limiting. There is mild plaque with limited stenosis noted in the mid SFA, and good runoff through to the popliteal artery. The proximal and mid popliteal artery has some heavier plaque, estimate 40-60% stenosis, but the distal popliteal arteries widely patent. There is three-vessel tibial runoff to the foot. The flow to the pedal vessels is rapid. There is a ball of calcified plaque at the origin of the peroneal artery, but there is lower around it with good flow through the peroneal artery to the ankle. The anterior tibial and posterior tibial arteries are widely patent. 3. After angioplasty of the SFA, we did not notice any waist on the balloon or any signs that the minimal plaque noted in the mid SFA and the tortuosity at the proximal SFA are flow-limiting. 4. After angioplasty the popliteal artery, there is still narrowing and flow- limiting plaque of about 40%, but after stenting and post-dilation of the popliteal artery there is widely patent inflow was no dissection embolization or extravasation noted. REPORT OF OPERATION: The patient was brought to the angiographic suite in stable condition. The patient is morbidly obese, and in one of the skin folds in the middle of the abdominal area just above the pubis there is a small excoriation and skin break, likely from use or poor grooming in this area. The area was thoroughly cleaned and dressed prior to prepping and draping for the procedure. His bilateral groins were prepped and draped in a sterile fashion. A timeout was performed sedation was administered without complication. Local anesthesia was administered to the skin is subcutaneous tissue over the left groin and a microneedle was used to access the common femoral artery under ultrasound guidance. A wire was passed through this access and the needle was removed and a 4 Slovenian glide sheath was placed and flushed with saline. We then advanced a Glidewire and on me flushed catheter and at the distal aorta and aortoiliofemoral arteriograms were performed, please see interpretation above. We then went up and over the bifurcation with a Glidewire and the Omni flushed catheter and selected the right common femoral artery and superficial femoral artery. Right lower extremity arteriogram was performed, please see interpretation above. We then exchange the sheath for a 6 Slovenian 45 cm destination sheath and flushed the sheath with saline. We advanced a Glidewire down into the tibial vessels under fluoroscopic guidance and a 5 x 100 [place] balloon was passed over the wire into the popliteal artery. We then removed the wire and a quick arteriogram with selection of the popliteal artery confirmed we were in the true lumen. We then angioplasty for three-minute inflation across the popliteal artery. Following this, there is still residual stenosis and plaque irregularity and a second three-minute angioplasty was performed. Following this, there is still flow-limiting stenosis and a 5 x 100 Innova stent was deployed from the mid to the proximal popliteal artery. This was postdilated with 5 x 100 [place] balloon and there was rapid flow through the vessel following this with no dissection or embolization or extravasation noted. We then retracted the balloon into the area is mild stenosis in the mid SFA and inflated it and noted no waist on the balloon and we then inflated the balloon also across the proximal superficial femoral artery there was also no waist on the balloon. Following this the flow through the SFA was still rapid and the areas of mild plaque and tortuosity are not flow-limiting, therefore we did not do any further treatment or stenting in this area. I elected not to try to treat the plaque at the origin of the peroneal artery, for fear I would disrupt the plaque and it might embolize into the posterior tibial artery, which is more critical for the patient's perfusion. Also, despite the plaque at the origin of the peroneal artery, the patient does have flow distal through the peroneal artery to the ankle. There is rapid flow through the anterior tibial and posterior tibial artery to the foot, and I bike to preserve this so no tibial angioplasty was done today. I felt it was not necessary. We exchange the sheath of her wire for short 6 [place]ian sheath and deployed a Mynx closure device with good hemostasis. She was held for 10 minutes and sterile dressings were applied and bacitracin and a dressing was placed over the skin excoriation in the skin fold of the mid abdomen also. The patient was taken to recovery in stable condition. He tolerated the procedure and the sedation well. ESTIMATED BLOOD LOSS: Approximately 5 mL. COMPLICATIONS: None. PLAN: It is okay for the patient to resume home medications and diet. We will give him a dose of Plavix to recovery today. He will need to be on Plavix a minimum of 60 days postprocedure for stent placement in the right popliteal artery. We encouraged the patient to ambulate as much as possible to help with weight loss and circulation. He should keep his glucose tightly controlled. It is okay for him to wear compression on the leg if the erythema on the skin is secondary to venous insufficiency. He has adequate perfusion to tolerate compression. We encouraged him to elevate his lower extremities to help with swelling if it occurs. We like to see him back in clinic in a week to check his left groin access site and his perfusion in the right lower extremity and see how he is doing. We appreciate the opportunity to participate in the care of this patient. OSITO WAGNER MD Aug 09, 2019 11:42
[2019-08-09] MEDS: CLOPIDOGREL 75 MG TAB PO ONE (12:35)
[2019-08-09] MEDS: ACETAMINOPHEN 325 MG TAB PO PRN (14:05)
[2019-08-09 15:22] VITALS: BP_DIAS 62
== END ==
LOC: M IRPRO 08:22
PROVIDERS: ATTEND Surgery Vascular Surgery
DX: I70.213 Atherosclerosis of native arteries of extremities with intermittent claudication, bilateral legs (principal); I70.222 Atherosclerosis of native arteries of extremities with rest pain, left leg; M62.81 Muscle weakness (generalized); E66.01 Morbid (severe) obesity due to excess calories

== ENCOUNTER → 2019-10-12 | Outpatient (CLI) | payer MEDICARE ==
[~2019-10-12] MED LIST changes: -ACETAMINOPHEN 325 MG TAB As Ordered ONE; -CLOPIDOGREL 75 MG TAB As Ordered ONE; -HEPARIN 1,000 UNITS/ML 10ML VIAL (FOR RADIOLOGY& DIALYSIS ONLY)(J1644-10) As Ordered ONE; -ISOVUE-300 61% 50ML VIAL (Q9967) As Ordered ONE; -LIDOCAINE 1% MDV 20ML VIAL As Ordered ONE; -MIDAZOLAM INJ 2 MG/2 ML VIAL (J2250) As Ordered ONE; -fentaNYL 100 MCG/2 ML INJECTION (J3010) As Ordered ONE
--- NOTE | 2019-10-12 16:16 | REP ---
REASON: Atherosclerosis RIGHT: The ankle brachial index was unobtainable. Peak Systolic Phasicity Velocity [employer] 200.5 cm/s Triphasic Profunda 70.8 cm/s Biphasic SFA proximal 115. 5 cm/s Triphasic SFA mid 103.1 cm/s Triphasic SFA distal 145.1 cm/s Triphasic Popliteal 116.4 cm/s Monophasic DOUG proximal 41.9 cm/s Monophasic Tibioperoneal trunk 82.9 cm/s Monophasic THUMB SEWER proximal not seen THUMB SEWER distal not seen DOUG distal 109.8 cm/s Monophasic LEFT: The ankle brachial index was unobtainable. Peak Systolic Phasicity Velocity [employer] 124.8 cm/s Biphasic Profunda 124.1 cm/s Biphasic SFA proximal 177.8 cm/s Biphasic SFA mid 65.9 cm/s Triphasic SFA distal 74.8 cm/s Monophasic Popliteal 74.2/93.7 cm/s Monophasic DOUG proximal 75.6 cm/s Monophasic Tibioperoneal trunk 55.2 cm/s Monophasic THUMB SEWER proximal 83.6 cm/s Monophasic THUMB SEWER distal not seen DOUG distal not seen The technologist noted significant edema bilaterally, which limits the exam. Electronically Signed by Nilesh Davis DO 10/12/2019 05:06 P
== END ==
LOC: M RAD 12:23
PROVIDERS: ATTEND Physician Assistant
DX: I70.211 Atherosclerosis of native arteries of extremities with intermittent claudication, right leg (principal); R60.0 Localized edema

== ENCOUNTER → 2019-11-14 | Outpatient (CLI) | payer MEDICARE ==
[~2019-11-14] MED LIST changes: +DOXY-350 PO; +ISOVUE-300 61% 50ML VIAL As Ordered ONE; +LIDOCAINE 1% MDV 20ML VIAL As Ordered ONE; +MIDAZOLAM INJ 2MG/2ML VIAL (J2250 PER 1MG) As Ordered ONE; +fentaNYL 100 MCG/2 ML INJECTION (J3010) As Ordered ONE; +hydrALAZINE 20MG/ML 1ML VIAL (J0360 PER 20MG) As Ordered ONE
[2019-11-14 09:35] LABS: HEMATOCRIT 38.3 % (42.0-52.0); HEMOGLOBIN 12.7 g/dl (13.5-17.5); MEAN CORPUSCULAR HEMOGLOBIN 33.1 pg (27.0-33.0); MEAN CORPUSCULAR HGB CONC 33.2 g/dl (32.0-36.5); MEAN CORPUSCULAR VOLUME 99.7 fl (80.0-96.0); PLATELET COUNT, AUTOMATED 182 10^3/uL (150-450); RED BLOOD COUNT 3.84 10^6/uL (4.30-6.10); WHITE BLOOD COUNT 5.5 10^3/uL (4.0-10.0)
[2019-11-14 10:08] LABS: CALCIUM LEVEL 8.8 MG/DL (8.8-10.2); CREATININE FOR GFR 2.06 MG/DL (0.70-1.30); GLOMERULAR FILTRATION RATE 33.7 (>42); POTASSIUM SERUM 4.1 MEQ/L (3.5-5.1)
--- NOTE | 2019-11-14 11:01 | ROOPDOC ---
[facility] Report Of Operation Report of Operation DATE OF PROCEDURE: 11/14/19 PREPROCEDURE DIAGNOSES: Atherosclerosis in the [place]nine [place] vessels with nonhealing wound right posterior calf and right first toe POSTPROCEDURE DIAGNOSES: Same PROCEDURE: 1. Ultrasound-guided access left common femoral artery 2. Aortoiliofemoral arteriogram and selection of the right common iliac artery with oblique view of the right iliac system 3. Selection right common femoral artery and SFA with right lower extremity runoff 4. Angioplasty right superficial femoral artery and popliteal artery was 6 x 200 [place] balloon 5. Completion arteriogram 6. Mynx closure left common femoral artery SURGEON: Osito Wagner MD ANESTHESIA: Local anesthesia 7 mL lidocaine. Moderate intravenous conscious sedation was supervised by Dr. Wagner. The patient was independently monitored by registered nurse signed the Department of radiology using automated blood pressure, EKG, and pulse oximetry. The detailed sedation record is permanently stored in the hospital information system. The following is a brief sedation record: Start time: 09:56, stop time: 10:37, Versed 1 mg IV, fentanyl 50 g IV, hydralazine 10 mg IV, heparin 5000 units IV. CONTRAST: 37 mL Isovue-300 INDICATION FOR PROCEDURE: Mr. Ventura is a very pleasant 73-year-old patient with a long-standing history of peripheral vascular disease status post multiple endovascular interventions in the past. Most recently, he had an angioplasty of the right superficial femoral artery and angioplasty and stenting of the right proximal popliteal artery. He has done well since then, but he developed a wound on his right toe and a wound on his right posterior calf. Repeat arterial duplex suggested the patient did not have flow through the posterior tibial artery, which is a new development, as well as some monophasic flow distal to the popliteal artery suggestive of possible restenosis of the popliteal artery. Risk benefits alternatives to an arteriogram potential intervention were explained to the patient he was agreeable to proceed. Informed consent was obtained. INTERPRETATION: 1. The aortoiliac segments are widely patent. The previously placed right distal common iliac external iliac artery stent is patent. The bilateral common iliac arteries hypogastric arteries and external iliac arteries are calcified and ectatic but widely patent. 2. The right common femoral artery and profunda are widely patent. The SFA has some bulky plaque in the mid artery extending for 1-2 cm, with about 20-30 per % luminal compromise. This was present on previous arteriogram, and has remained patent after previous angioplasty but has some recurrent stenosis. The distal SFA is widely patent, and the proximal popliteal artery stent is patent. Just distal to the stent, in the mid artery, there appears to be some mild stenosis, 20-30%, with the distal popliteal artery widely patent. 3. The right tibial outflow is fairly good. The anterior tibial artery and posterior tibial artery are both widely patent and run off all the way to the distal foot. The peroneal artery has a focal bulky plaque at its origin, noted on previous arteriogram, but does have flow distal to this although it is somewhat thready and occludes at the distal calf. 4. After angioplasty of the superficial femoral artery and the popliteal artery with a 6 x 200 [place] balloon, the area of stenosis in the SFA and popliteal artery are widely patent. No significant residual stenosis is noted. No extravasation, embolization, or dissection are noted. REPORT OF OPERATION: The patient was brought to the angiographic suite in stable condition. His bilateral groins were prepped and draped in a sterile fashion. A timeout was performed. The patient was hypertensive at the beginning of the case , with systolic blood pressure greater than 200 mmHg. Sedation was administered without complication. 5 minutes after sedation, the patient's blood pressure remained high, with a systolic blood pressure greater than 190 mmHg. 10 mg of hydralazine was given IV, and the patient's systolic blood pressure subsequently remained between 140 and 165 mmHg for the rest of the case. Local anesthesia was administered to the skin and subcutaneous tissue over the left groin a microneedle was used to access the left common femoral artery under ultrasound guidance. This was a bit of a challenging access due to patient obesity, but we were able to successfully access the common femoral artery over the femoral head with a combination of ultrasound and fluoroscopic guidance. A wire was passed through this access under fluoroscopic guidance the needle was removed and a 4 [place] sheath was placed and flushed with saline. We then introduced a Glidewire and flushing catheter into the distal aorta. Aortoiliofemoral arteriograms were performed. Please interpretation above. We then selected the right common iliac artery and a second right iliac arteriogram was performed to make sure we did not miss any stenosis in the area of previous stent. Once we confirmed that the iliacs were widely patent, we selected the right common femoral and superficial femoral artery origin and a right lower extremity arteriogram and runoff were performed. Please interpretation above. Next, we states the sheath for a 45 cm 6 [place] destination sheath and flushed the sheath with saline. We have has a Glidewire under fluoroscopic guidance through the SFA and across the popliteal artery. We then selected 6 x 200 [place] balloon and performed angioplastied across the entire SFA and popliteal artery for three-minute inflations. Following this, there is widely patent flow with no significant residual stenosis. This concluded the procedure, and we exchanged the sheath for short 6 [place] sheath in a Mynx closure device was deployed under fluoroscopic guidance. Good hemostasis was noted and pressure was held for 5 minutes and sterile dressings were applied. The patient was taken to recovery in stable condition. He tolerated the procedure and the sedation well. ESTIMATED BLOOD LOSS: Approximately 2 mL. COMPLICATIONS: None. PLAN: Minimal contrast was used for this procedure in light of the patient's known renal insufficiency, and we will continue aggressive hydration for the next 4 hours during his bedrest. We will encourage the patient to drink play fluids over the next week to minimize his risk for worsening renal function due to contrast administration. A great deal fluid was given before and during the procedure as well. Overall, the patient's arterial flow in the right lower extremity is quite good. We do see flow through the posterior tibial artery all the way to the distal foot, so perhaps the preop ultrasound findings possibly were because it was difficult to visualize on ultrasound due to obesity. Were pleased to see that he has excellent anterior tibial and posterior tibial flow with good pedal runoff all the way to the distal foot. He should have adequate blood flow to heal to toe from a vascular standpoint. However, the patient is an obese diabetic with limited help at home, and this can make healing challenging. It is okay for the patient to resume his home diet medications including Plavix. He would like a refill on his antibiotic, Bactrim, that was given to him by his residency coordinator, due to new excoriations on his left toes that have become little bit red. Since we note that his renal function is a little bit worse than it was earlier in the year, I like to avoid Bactrim for now. We discussed discussed the best option for skin coverage in a diabetic patient with a penicillin allergy and limited help at home. She suggested doxycycline and this prescription was called into [facility] and start leg along with a refill on his Plavix prescription. He should resume all dressing and orders by the residency coordinator for his feet. We will see the patient back in a week to check his groin access site. We appreciate the opportunity to participate in the care of this patient. OSITO WAGNER MD Nov 14, 2019 11:01
[2019-11-14 14:45] VITALS: BP 148/64
== END ==
LOC: M IRPRO 08:20
PROVIDERS: ATTEND Surgery Vascular Surgery
DX: I70.211 Atherosclerosis of native arteries of extremities with intermittent claudication, right leg (principal); I70.232 Atherosclerosis of native arteries of right leg with ulceration of calf; I70.235 Atherosclerosis of native arteries of right leg with ulceration of other part of foot; L97.219 Non-pressure chronic ulcer of right calf with unspecified severity; L97.519 Non-pressure chronic ulcer of other part of right foot with unspecified severity; I10 Essential (primary) hypertension; E78.00 Pure hypercholesterolemia, unspecified; E66.9 Obesity, unspecified; Z79.4 Long term (current) use of insulin; Z79.82 Long term (current) use of aspirin; Z79.899 Other long term (current) drug therapy; Z87.891 Personal history of nicotine dependence; Z88.0 Allergy status to penicillin
CPT/HCPCS: 37224; 75710; 75774; 80048; 85027; 99152; 99153; C1725; C1760; C1769; C1887; C1894; J0360; J1644; J2250; J3010; Q9967

== ENCOUNTER → 2020-01-03 | Outpatient (CLI) | payer MEDICARE ==
[~2020-01-03] MED LIST changes: -ASPI81TA85 PO; +ASPI81TA86 PO; -ISOVUE-300 61% 50ML VIAL As Ordered ONE; -LIDOCAINE 1% MDV 20ML VIAL As Ordered ONE; -MIDAZOLAM INJ 2MG/2ML VIAL (J2250 PER 1MG) As Ordered ONE; -fentaNYL 100 MCG/2 ML INJECTION (J3010) As Ordered ONE; -hydrALAZINE 20MG/ML 1ML VIAL (J0360 PER 20MG) As Ordered ONE
--- NOTE | 2020-01-31 15:04 | REP ---
BILATERAL LOWER EXTREMITY DUPLEX DOPPLER ARTERIAL ULTRASOUND HISTORY: Peripheral vascular disease. TECHNIQUE: Real-time ultrasound evaluation and duplex Doppler interrogation of bilateral lower extremity arterial systems is performed. FINDINGS: Heavy atherosclerotic calcifications are seen diffusely bilaterally, especially in the calf arteries. The internal flow is not visualized in the proximal right posterior tibial artery. This could be due to obscuration of the lumen due to extensive calcified plaque, but I cannot exclude occlusion at that level. Similar findings are seen in the left proximal anterior tibial artery and throughout the left posterior tibial artery, with no internal blood flow identified, either due to obscuration by heavy calcific plaque versus occlusion. No focal stenosis is seen more proximally bilaterally. Diffuse biphasic and triphasic waveforms are seen except for monophasic waveform in the proximal right anterior tibial artery and distal anterior and posterior tibial arteries, as well as in the distal left anterior tibial artery. RIGHT PSV LEFT PSV Femoral artery 284.3 cm/s 141.7 cm/s Profunda 128.7 cm/s 73.1 cm/s Proximal SFA 133.0 cm/s 92.1 cm/s Mid SFA 98.3 cm/s 65.7 cm/s Distal SFA 80.5 cm/s 73.6 cm/s Popliteal 95.3 cm/s 61.5 cm/s Proximal DOUG 37.0 cm/s No flow Tibioperoneal trunk 58.9 cm/s 55.8 cm/s Proximal [employer] No flow No flow Distal [employer] 49.9 cm/s No flow Distal DOUG 94.3 cm/s 55.7 cm/s MTDD
== END ==
LOC: M RAD 13:32
PROVIDERS: ATTEND Physician Assistant
DX: I70.211 Atherosclerosis of native arteries of extremities with intermittent claudication, right leg (principal)